=== PATIENT | female | born 1970 ===

== ENCOUNTER → 2022-03-26 | Outpatient (CLI) | payer OTHER ==
[~2022-03-26] MED LIST: AZATHIOPRINE; BUDE32NIS; CETI10; ESOM20; FOLI1; HUMIRA; HYDACE5 PO; IBUP800; METTREX2.5; OXYC40ER; OXYCONTIN; PANT40; PRED20; QUET200; VENL75ER
== END | disposition home or self-care (01) ==
LOC: LAB SHORT 11:04 → LAB 11:04
DX: N39.0 Urinary tract infection, site not specified (principal)
CPT/HCPCS: 87077; 87086; 87186

== ENCOUNTER → 2022-06-06 | Outpatient (CLI) | payer OTHER | LOC: LAB 10:39 → LAB SHORT 10:39 | DX: N39.0 Urinary tract infection, site not specified (principal) | CPT/HCPCS: 87077; 87086; 87186 ==

== ENCOUNTER → 2022-08-23 | Outpatient (CLI) | payer OTHER ==
[2022-08-23 14:35] LABS: BASOPHILS ABSOLUTE AUTO 0.03 K/mm3 (0.00-0.23); BASOPHILS PERCENT AUTO 0 % (0-2); EOSINOPHILS ABSOLUTE AUTO 0.04 K/mm3 (0.00-0.68); EOSINOPHILS PERCENT AUTO 0 % (0-6); Hematocrit 40.1 % (33.0-51.0); Hemoglobin 13.1 g/dL (11.5-16.0); IMMATURE GRAN ABSOLUTE AUTO 0.08 K/mm3 (0.00-0.10); IMMATURE GRAN PERCENT AUTO 1 % (0-1); LYMPHOCYTES ABSOLUTE AUTO 0.81 K/mm3 (0.84-5.20); LYMPHOCYTES PERCENT AUTO 7 % (21-46); MONOCYTES ABSOLUTE AUTO 0.73 K/mm3 (0.16-1.47); MONOCYTES PERCENT AUTO 6 % (4-13); Mean Corpuscular HGB 30.8 pg (26.0-34.0); Mean Corpuscular HGB Conc 32.7 g/dL (31.5-36.5); Mean Corpuscular Volume 94 fL (80-100); Mean Platelet Volume 10.3 fL (9.1-12.4); NEUTROPHILS ABSOLUTE AUTO 10.25 K/mm3 (1.96-9.15); NEUTROPHILS PERCENT AUTO 86 % (41-73); Platelet Count 225 K/mm3 (150-400); RDW Coefficient Variation 14.7 % (11.7-14.2); RDW Standard Deviation 50.9 fL (35.1-46.3); Red Blood Cell Count 4.26 M/mm3 (3.80-5.20); White Blood Cell Count 11.94 K/mm3 (4.00-11.30)
[2022-08-23 15:15] LABS: International Normalized Ratio 2.7; Prothrombin Time Results 26.6 Sec (9.7-11.5)
== END | disposition home or self-care (01) ==
LOC: LAB SHORT 14:31 → LAB 14:31
PROVIDERS: Physician Assistant
DX: S80.11XA Contusion of right lower leg, initial encounter (principal)
CPT/HCPCS: 85025; 85610

== ENCOUNTER → 2022-08-26 | Outpatient (CLI) | payer OTHER ==
[2022-08-26 14:50] LABS: Source, Urine Voided
[2022-08-26 16:59] LABS: Appearance, Urine Cloudy (Clear); Bilirubin, Urine Neg (Neg); Blood, Urine Neg (Neg); Color, Urine Amber (P-Yellow); Glucose Qualitative, Urine Neg (Neg); Ketones, Urine 1+ (Neg); Leukocyte Esterase, Urine Neg (Neg); Nitrite, Urine Neg (Neg); Protein, Urine 2+ (Neg); Urobilinogen, Urine NORM (Normal)
[2022-08-26 17:18] LABS: Amorphous Heavy (0-Heavy)
[2022-08-26 17:19] LABS: Bacteria Rare /hpf; Red Blood Cells, Urine 0-2 /hpf (0-2); Squamous Epithelial Cells Few /hpf (Few); White Blood Cells, Urine 0-2 /hpf (0-5)
== END | disposition home or self-care (01) ==
LOC: LAB SHORT 14:47 → LAB 14:47
PROVIDERS: Physician Assistant
DX: R30.0 Dysuria (principal)
CPT/HCPCS: 81001

== ENCOUNTER → 2023-04-18 | Outpatient (CLI) | payer OTHER | LOC: LAB SHORT 16:09 → LAB 16:09 | DX: N39.0 Urinary tract infection, site not specified (principal) | CPT/HCPCS: 87077; 87086; 87186 ==

== ENCOUNTER 2023-09-14 02:12 | Day surgery (SDC) | payer OTHER ==
[~2023-09-14 02:12] MED LIST changes: +Aspir 8181 MG PO; +BUPROPION HCL200 M2 PO; +DEPO MEDRO; +FLONASE ALLERG9.9 M2; +HYDSUL200 PO; +IRON18 MG PO; +MULTI-VITAMIN1 EAC2; +OXYC5; +OYSTER SHELL 51 EACH PO; +PREG150 PO; +Prednisone10 MG PO; +Vitamin C100 M1; +WARF1
[2023-09-14] MEDS ORDERED: Abatacept/Maltose 1,000 MG in NS 100 ML IV SCH (06:00)
[2023-09-14 10:33] VITALS: BP 121/69
== END 2023-09-14 23:11 | disposition home or self-care (01) ==
LOC: ATC 02:12
DX: M06.9 Rheumatoid arthritis, unspecified (principal); E11.42 Type 2 diabetes mellitus with diabetic polyneuropathy; E66.01 Morbid (severe) obesity due to excess calories; G47.33 Obstructive sleep apnea (adult) (pediatric); K21.9 Gastro-esophageal reflux disease without esophagitis; Z86.711 Personal history of pulmonary embolism; Z79.899 Other long term (current) drug therapy; Z79.52 Long term (current) use of systemic steroids; Z79.01 Long term (current) use of anticoagulants
CPT/HCPCS: 96365; J0129-JA

== ENCOUNTER 2023-10-13 05:08 | Day surgery (SDC) | payer OTHER ==
[2023-10-13 14:55] VITALS: BP 124/77
== END 2023-10-13 15:52 | disposition home or self-care (01) ==
LOC: ATC 05:08
DX: M06.9 Rheumatoid arthritis, unspecified (principal); E11.40 Type 2 diabetes mellitus with diabetic neuropathy, unspecified; E78.5 Hyperlipidemia, unspecified; F32.A Depression, unspecified; G47.33 Obstructive sleep apnea (adult) (pediatric); K21.9 Gastro-esophageal reflux disease without esophagitis; I26.99 Other pulmonary embolism without acute cor pulmonale; M32.9 Systemic lupus erythematosus, unspecified

== ENCOUNTER → 2023-11-28 | Outpatient (CLI) | payer OTHER | END | disposition home or self-care (01) | LOC: LAB SHORT 09:46 → LAB 09:46 | DX: N39.0 Urinary tract infection, site not specified (principal) | CPT/HCPCS: 87086 ==

== ENCOUNTER 2024-01-02 01:44 | Day surgery (SDC) | payer OTHER ==
[~2024-01-02] VITALS: Wt 128.9 kg
[2024-01-02] MEDS ORDERED: DiphenhydrAMINE HCL 25 MG Cap PO PRN (07:10)
[2024-01-02] MEDS ORDERED: Acetaminophen 500 MG Tab PO PRN (07:10)
[2024-01-02] MEDS ORDERED: Abatacept/Maltose 1,000 MG in NS 100 ML IV SCH (10:45)
[2024-01-02 11:43] VITALS: BP 96/58
[2024-01-02 11:47] VITALS: BP 93/57
[2024-01-02 11:52] LABS: International Normalized Ratio 3.21; Prothrombin Time Results 31.5 Sec (9.7-11.5)
== END 2024-01-02 11:58 | disposition home or self-care (01) ==
LOC: ATC 01:44
PROVIDERS: Internal Medicine
DX: M06.09 Rheumatoid arthritis without rheumatoid factor, multiple sites (principal); M32.9 Systemic lupus erythematosus, unspecified; Z79.899 Other long term (current) drug therapy
CPT/HCPCS: 85610; 96365; A9270; J0129-JA

== ENCOUNTER 2024-01-30 02:13 | Day surgery (SDC) | payer OTHER ==
[2024-01-30] MEDS ORDERED: Abatacept/Maltose 1,000 MG in NS 100 ML IV SCH (10:30)
[2024-01-30] MEDS ORDERED: Acetaminophen 500 MG Tab PO SCH (10:30)
[2024-01-30] MEDS ORDERED: DiphenhydrAMINE HCL 25 MG Cap PO SCH (10:30)
[2024-01-30] MEDS ORDERED: DiphenhydrAMINE HCL 25 MG Cap ONE (10:31)
[2024-01-30 10:41] VITALS: BP 115/67
== END 2024-01-30 11:35 | disposition home or self-care (01) ==
LOC: ATC 02:13
DX: M06.09 Rheumatoid arthritis without rheumatoid factor, multiple sites (principal); Z79.899 Other long term (current) drug therapy
CPT/HCPCS: 85610; 96365; A9270; J0129-JA

== ENCOUNTER 2024-03-26 04:49 | Day surgery (SDC) | payer OTHER ==
[2024-03-26] MEDS ORDERED: Acetaminophen 500 MG Tab PO SCH (07:05)
[2024-03-26] MEDS ORDERED: DiphenhydrAMINE HCL 25 MG Cap PO SCH (07:05)
[2024-03-26 10:14] VITALS: BP 128/78
[2024-03-26] MEDS ORDERED: Abatacept/Maltose 1,000 MG in NS 100 ML IV SCH (10:20)
[2024-03-26] MEDS ORDERED: Prednisone20 MG PO (10:43)
[2024-03-26 11:20] LABS: International Normalized Ratio 3.54; Prothrombin Time Results 34.5 Sec (9.7-11.5)
== END 2024-03-26 11:38 | disposition home or self-care (01) ==
LOC: ATC 04:49
PROVIDERS: Internal Medicine
DX: M06.09 Rheumatoid arthritis without rheumatoid factor, multiple sites (principal); M32.9 Systemic lupus erythematosus, unspecified; Z79.01 Long term (current) use of anticoagulants; Z79.899 Other long term (current) drug therapy
CPT/HCPCS: 85610; 96365; A9270; J0129-JA

== ENCOUNTER 2024-05-07 04:06 | Day surgery (SDC) | payer OTHER ==
[~2024-05-07 04:06] MED LIST changes: +Prednisone20 MG PO
[2024-05-07] MEDS ORDERED: Acetaminophen 500 MG Tab PO SCH (06:55)
[2024-05-07] MEDS ORDERED: DiphenhydrAMINE HCL 25 MG Cap PO SCH (06:55)
[2024-05-07 08:28] VITALS: BP 108/55
[2024-05-07] MEDS ORDERED: Abatacept/Maltose 1,000 MG in NS 100 ML IV SCH (08:50)
[2024-05-07 09:32] LABS: International Normalized Ratio 2.1; Prothrombin Time Results 21.3 Sec (9.7-11.5)
== END 2024-05-07 09:46 | disposition home or self-care (01) ==
LOC: ATC 04:06
PROVIDERS: Internal Medicine
DX: M06.09 Rheumatoid arthritis without rheumatoid factor, multiple sites (principal); M17.0 Bilateral primary osteoarthritis of knee; Z79.899 Other long term (current) drug therapy; Z79.01 Long term (current) use of anticoagulants
CPT/HCPCS: 85610; 96365; A9270; J0129-JA

== ENCOUNTER 2024-07-08 07:00 | Day surgery (SDC) | payer OTHER ==
[2024-07-08] MEDS ORDERED: Acetaminophen 500 MG Tab PO SCH (07:20)
[2024-07-08] MEDS ORDERED: DiphenhydrAMINE HCL 25 MG Cap PO SCH (07:20)
[2024-07-08 16:00] VITALS: BP 115/48
[2024-07-08] MEDS ORDERED: Abatacept/Maltose 1,000 MG in NS 100 ML IV SCH (16:15)
[2024-07-08 17:10] LABS: International Normalized Ratio 2.14; Prothrombin Time Results 21.6 Sec (9.7-11.5)
== END 2024-07-08 17:30 | disposition home or self-care (01) ==
LOC: ATC 07:00
PROVIDERS: Internal Medicine
DX: M06.09 Rheumatoid arthritis without rheumatoid factor, multiple sites (principal)
CPT/HCPCS: 85610; 96365; A9270; J0129-JA

== ENCOUNTER 2024-08-06 00:36 | Day surgery (SDC) | payer OTHER ==
[2024-08-06] MEDS ORDERED: DiphenhydrAMINE HCL 25 MG Cap PO SCH (07:00)
[2024-08-06] MEDS ORDERED: Acetaminophen 500 MG Tab PO SCH (07:00)
[2024-08-06 10:19] VITALS: BP 124/66
[2024-08-06] MEDS ORDERED: Abatacept/Maltose 1,000 MG in NS 100 ML IV SCH (10:25)
[2024-08-06 12:26] LABS: International Normalized Ratio 2.79; Prothrombin Time Results 27.7 Sec (9.7-11.5)
== END 2024-08-06 12:00 | disposition home or self-care (01) ==
LOC: ATC 00:36
PROVIDERS: Internal Medicine
DX: M06.09 Rheumatoid arthritis without rheumatoid factor, multiple sites (principal); E27.40 Unspecified adrenocortical insufficiency; G89.4 Chronic pain syndrome; M85.80 Other specified disorders of bone density and structure, unspecified site; M35.00 Sjogren syndrome, unspecified; E66.9 Obesity, unspecified; Z79.52 Long term (current) use of systemic steroids; Z79.899 Other long term (current) drug therapy
CPT/HCPCS: 85610; 96365; A9270; J0129-JA

== ENCOUNTER 2024-09-03 03:46 | Day surgery (SDC) | payer OTHER ==
[2024-09-03] MEDS ORDERED: Acetaminophen 500 MG Tab PO SCH (07:20)
[2024-09-03] MEDS ORDERED: DiphenhydrAMINE HCL 25 MG Cap PO SCH (07:20)
[2024-09-03 14:17] VITALS: BP 122/64
[2024-09-03] MEDS ORDERED: Abatacept/Maltose 1,000 MG in NS 100 ML IV SCH (14:20)
[2024-09-03 14:46] LABS: International Normalized Ratio 2.85; Prothrombin Time Results 28.2 Sec (9.7-11.5)
== END 2024-09-03 15:31 | disposition home or self-care (01) ==
LOC: ATC 03:46
PROVIDERS: Internal Medicine
DX: M06.09 Rheumatoid arthritis without rheumatoid factor, multiple sites (principal); E27.40 Unspecified adrenocortical insufficiency; M85.80 Other specified disorders of bone density and structure, unspecified site; G89.29 Other chronic pain; Z79.899 Other long term (current) drug therapy
CPT/HCPCS: 85610; 96365; A9270; J0129-JA

== ENCOUNTER 2024-10-01 04:05 | Day surgery (SDC) | payer OTHER ==
[2024-10-01] MEDS ORDERED: DiphenhydrAMINE HCL 25 MG Cap PO PRN (06:55)
[2024-10-01] MEDS ORDERED: Acetaminophen 500 MG Tab PO PRN (06:55)
[2024-10-01 10:09] VITALS: BP 135/70
[2024-10-01] MEDS ORDERED: Abatacept/Maltose 1,000 MG in NS 100 ML IV SCH (10:15)
[2024-10-01 11:06] LABS: International Normalized Ratio 3.41; Prothrombin Time Results 33.3 Sec (9.7-11.5)
== END 2024-10-01 11:15 | disposition home or self-care (01) ==
LOC: ATC 04:05
PROVIDERS: Internal Medicine
DX: M06.09 Rheumatoid arthritis without rheumatoid factor, multiple sites (principal); M35.00 Sjogren syndrome, unspecified; Z79.01 Long term (current) use of anticoagulants; Z79.899 Other long term (current) drug therapy
CPT/HCPCS: 85610; 96365; A9270; J0129-JA

== ENCOUNTER 2024-12-19 02:04 | Day surgery (SDC) | payer OTHER ==
[2024-12-19 08:00] VITALS: BP 119/72
[2024-12-19] MEDS ORDERED: Abatacept/Maltose 1,000 MG in NS 100 ML IV SCH (08:20)
== END 2024-12-19 09:25 | disposition home or self-care (01) ==
LOC: ATC 02:04
DX: M06.09 Rheumatoid arthritis without rheumatoid factor, multiple sites (principal); M35.00 Sjogren syndrome, unspecified; E27.40 Unspecified adrenocortical insufficiency; M85.80 Other specified disorders of bone density and structure, unspecified site; G89.4 Chronic pain syndrome; Z86.718 Personal history of other venous thrombosis and embolism; Z79.01 Long term (current) use of anticoagulants; Z79.52 Long term (current) use of systemic steroids; Z79.82 Long term (current) use of aspirin; Z79.899 Other long term (current) drug therapy
CPT/HCPCS: 96365; A9270; J0129-JA

== ENCOUNTER 2025-03-20 03:08 | Day surgery (SDC) | payer OTHER ==
[2025-03-20] MEDS ORDERED: Lidocaine HCl 4% Cream 5 GM ONE (12:14)
== END 2025-03-20 23:00 | disposition home or self-care (01) ==
LOC: WOUND 03:08
DX: S81.802A Unspecified open wound, left lower leg, initial encounter (principal); S81.801A Unspecified open wound, right lower leg, initial encounter; X58.XXXA Exposure to other specified factors, initial encounter; L08.9 Local infection of the skin and subcutaneous tissue, unspecified; M06.9 Rheumatoid arthritis, unspecified; M32.9 Systemic lupus erythematosus, unspecified; E11.9 Type 2 diabetes mellitus without complications; E24.2 Drug-induced Cushing's syndrome; E27.40 Unspecified adrenocortical insufficiency; Z88.8 Allergy status to other drugs, medicaments and biological substances; Z91.041 Radiographic dye allergy status
CPT/HCPCS: A6213; A9270; G0463

== ENCOUNTER 2025-03-26 03:23 | Day surgery (SDC) | payer OTHER ==
[2025-03-26] MEDS ORDERED: Lidocaine HCl 4% Cream 5 GM ONE (13:48)
== END 2025-03-26 23:00 | disposition home or self-care (01) ==
LOC: WOUND 03:23
DX: S81.802D Unspecified open wound, left lower leg, subsequent encounter (principal); L08.9 Local infection of the skin and subcutaneous tissue, unspecified
CPT/HCPCS: A6213; A9270; G0463

== ENCOUNTER 2025-04-02 00:49 | Day surgery (SDC) | payer OTHER ==
[2025-04-02] MEDS ORDERED: Lidocaine HCl 4% Cream 5 GM ONE (13:53)
== END 2025-04-02 23:00 | disposition home or self-care (01) ==
LOC: WOUND 00:49
DX: E11.622 Type 2 diabetes mellitus with other skin ulcer (principal); L97.122 Non-pressure chronic ulcer of left thigh with fat layer exposed; L97.112 Non-pressure chronic ulcer of right thigh with fat layer exposed; L08.9 Local infection of the skin and subcutaneous tissue, unspecified; M06.9 Rheumatoid arthritis, unspecified; M32.9 Systemic lupus erythematosus, unspecified; D80.1 Nonfamilial hypogammaglobulinemia; E24.2 Drug-induced Cushing's syndrome; E27.40 Unspecified adrenocortical insufficiency; Z79.52 Long term (current) use of systemic steroids
CPT/HCPCS: A6213; A9270; G0463

== ENCOUNTER 2025-04-09 01:38 | Day surgery (SDC) | payer OTHER ==
[2025-04-09] MEDS ORDERED: Lidocaine HCl 4% Cream 5 GM ONE (13:41)
== END 2025-04-09 23:00 | disposition home or self-care (01) ==
LOC: WOUND 01:38
DX: L97.822 Non-pressure chronic ulcer of other part of left lower leg with fat layer exposed (principal)
CPT/HCPCS: A6213; A9270

== ENCOUNTER 2025-04-16 09:47 | Day surgery (SDC) | payer OTHER ==
[2025-04-16] MEDS ORDERED: Lidocaine HCl 4% Cream 5 GM ONE (13:42)
== END 2025-04-16 23:00 | disposition home or self-care (01) ==
LOC: WOUND 09:47
DX: E11.622 Type 2 diabetes mellitus with other skin ulcer (principal); L97.125 Non-pressure chronic ulcer of left thigh with muscle involvement without evidence of necrosis; L08.9 Local infection of the skin and subcutaneous tissue, unspecified; M06.9 Rheumatoid arthritis, unspecified; M32.9 Systemic lupus erythematosus, unspecified; E24.2 Drug-induced Cushing's syndrome; E27.40 Unspecified adrenocortical insufficiency; D80.1 Nonfamilial hypogammaglobulinemia
CPT/HCPCS: A6213; A9270

== ENCOUNTER 2025-04-30 01:03 | Day surgery (SDC) | payer OTHER ==
[2025-04-30] MEDS ORDERED: Lidocaine HCl 4% Cream 5 GM ONE ×2 (09:02→09:17)
== END 2025-04-30 23:00 | disposition home or self-care (01) ==
LOC: WOUND 01:03
DX: L97.125 Non-pressure chronic ulcer of left thigh with muscle involvement without evidence of necrosis (principal); L97.112 Non-pressure chronic ulcer of right thigh with fat layer exposed; E83.59 Other disorders of calcium metabolism; I79.8 Other disorders of arteries, arterioles and capillaries in diseases classified elsewhere; I73.9 Peripheral vascular disease, unspecified
CPT/HCPCS: A6213; A9270; G0463

== ENCOUNTER 2025-05-07 00:27 | Day surgery (SDC) | payer OTHER ==
[2025-05-07] MEDS ORDERED: Lidocaine HCl 4% Cream 5 GM ONE (13:36)
== END 2025-05-07 23:33 | disposition home or self-care (01) ==
LOC: WOUND 00:27
DX: L97.122 Non-pressure chronic ulcer of left thigh with fat layer exposed (principal); L97.112 Non-pressure chronic ulcer of right thigh with fat layer exposed; E83.59 Other disorders of calcium metabolism; I79.8 Other disorders of arteries, arterioles and capillaries in diseases classified elsewhere; I73.9 Peripheral vascular disease, unspecified; Z79.01 Long term (current) use of anticoagulants; Z79.51 Long term (current) use of inhaled steroids; Z79.52 Long term (current) use of systemic steroids; Z79.82 Long term (current) use of aspirin; Z79.899 Other long term (current) drug therapy; Z88.8 Allergy status to other drugs, medicaments and biological substances; Z91.018 Allergy to other foods; Z91.041 Radiographic dye allergy status
CPT/HCPCS: A6213; A9270; G0463

== ENCOUNTER 2025-05-14 00:24 | Day surgery (SDC) | payer OTHER ==
[2025-05-14] MEDS ORDERED: Lidocaine HCl 4% Cream 5 GM ONE (13:58)
== END 2025-05-14 23:00 | disposition home or self-care (01) ==
LOC: WOUND 00:24
DX: E11.622 Type 2 diabetes mellitus with other skin ulcer (principal); L97.122 Non-pressure chronic ulcer of left thigh with fat layer exposed; L97.112 Non-pressure chronic ulcer of right thigh with fat layer exposed; E83.59 Other disorders of calcium metabolism; E11.51 Type 2 diabetes mellitus with diabetic peripheral angiopathy without gangrene; E24.2 Drug-induced Cushing's syndrome; M06.9 Rheumatoid arthritis, unspecified; D80.1 Nonfamilial hypogammaglobulinemia; M32.9 Systemic lupus erythematosus, unspecified; Z79.52 Long term (current) use of systemic steroids
CPT/HCPCS: A6213; A9270; G0463

== ENCOUNTER → 2025-05-19 | Outpatient (CLI) | payer OTHER ==
[2025-05-19 16:18] LABS: BASOPHILS ABSOLUTE AUTO 0.09 K/mm3 (0.00-0.23); BASOPHILS PERCENT AUTO 1 % (0-2); EOSINOPHILS ABSOLUTE AUTO 0.04 K/mm3 (0.00-0.68); EOSINOPHILS PERCENT AUTO 0 % (0-6); Hematocrit 41.3 % (33.0-51.0); Hemoglobin 13.2 g/dL (11.5-16.0); IMMATURE GRAN ABSOLUTE AUTO 0.11 K/mm3 (0.00-0.10); IMMATURE GRAN PERCENT AUTO 1 % (0-1); LYMPHOCYTES ABSOLUTE AUTO 1.71 K/mm3 (0.84-5.20); LYMPHOCYTES PERCENT AUTO 18 % (21-46); MONOCYTES ABSOLUTE AUTO 0.68 K/mm3 (0.16-1.47); MONOCYTES PERCENT AUTO 7 % (4-13); Mean Corpuscular HGB Conc 32.0 g/dL (31.5-36.5); Mean Corpuscular Volume 94 fL (80-100); NEUTROPHILS ABSOLUTE AUTO 6.75 K/mm3 (1.96-9.15); NEUTROPHILS PERCENT AUTO 72 % (41-73); NRBC ABSOLUTE 0.00 K/mm3 (0.00-0.02); NRBC Auto 0.0 /100 WBC (0.0-0.2); Platelet Count 324 K/mm3 (150-400); RDW Coefficient Variation 15.3 % (11.7-14.2); RDW Standard Deviation 53.1 fL (35.1-46.3)
[2025-05-19 16:27] LABS: Alanine Aminotransfer (ALT/SGP 48.0 U/L (12-78); Albumin, Blood 3.7 g/dL (3.4-5.0); Albumin/Globulin Ratio 1.1 (0.8-1.8); Anion Gap 13.0 mmol/L (3-11); Aspartate Aminotrans (AST/SGOT 28.0 U/L (12-37); Bilirubin, Total 0.5 mg/dL (0.1-1.0); Blood Urea Nitrogen 13.0 mg/dL (8-24); CO2, Blood 29.0 mmol/L (21-32); Chloride, Blood 106.0 mmol/L (98-108); Creatinine, Blood 0.77 mg/dL (0.40-1.00); Globulin, Blood 3.4 g/dL (2.2-4.0); Glucose, Blood 80.0 mg/dL (70-99); Potassium, Blood 3.9 mmol/L (3.5-5.5); Sodium, Blood 144.0 mmol/L (136-145); Total Protein, Blood 7.1 g/dL (6.4-8.2)
[2025-05-19 16:33] LABS: Calcium, Blood 9.0 mg/dL (8.5-10.1)
[2025-05-19 20:14] LABS: Prothrombin Time Results 36.1 Sec (9.7-11.5)
[2025-05-21 07:40] LABS: ANTI-NUCLEAR AB ANA,IGG ELISA None Detected (None Detected)
== END ==
LOC: LAB SHORT 16:12 → LAB 16:12
PROVIDERS: Internal Medicine; Physician Assistant
DX: B99.9 Unspecified infectious disease (principal); L52 Erythema nodosum; D68.62 Lupus anticoagulant syndrome
CPT/HCPCS: 80053; 85025; 85610; 85651; 86038; 86140; 87070; 87075; 87205

== ENCOUNTER 2025-05-21 01:20 | Day surgery (SDC) | payer OTHER ==
[2025-05-21] MEDS ORDERED: Lidocaine HCl 4% Cream 5 GM ONE (13:32)
== END 2025-05-21 23:58 | disposition home or self-care (01) ==
LOC: WOUND 01:20
DX: L97.122 Non-pressure chronic ulcer of left thigh with fat layer exposed (principal); L97.112 Non-pressure chronic ulcer of right thigh with fat layer exposed; E83.59 Other disorders of calcium metabolism; I79.8 Other disorders of arteries, arterioles and capillaries in diseases classified elsewhere; I73.9 Peripheral vascular disease, unspecified
CPT/HCPCS: A6213; A9270; G0463

== ENCOUNTER 2025-06-04 08:20 | Day surgery (SDC) | payer OTHER ==
[2025-06-04] MEDS ORDERED: Lidocaine HCl 4% Cream 5 GM ONE (13:33)
== END 2025-06-04 23:00 | disposition home or self-care (01) ==
LOC: WOUND 08:20
DX: E11.622 Type 2 diabetes mellitus with other skin ulcer (principal); L97.122 Non-pressure chronic ulcer of left thigh with fat layer exposed; L97.112 Non-pressure chronic ulcer of right thigh with fat layer exposed; E83.59 Other disorders of calcium metabolism; E11.51 Type 2 diabetes mellitus with diabetic peripheral angiopathy without gangrene; M32.9 Systemic lupus erythematosus, unspecified; M06.9 Rheumatoid arthritis, unspecified; D80.1 Nonfamilial hypogammaglobulinemia; E27.40 Unspecified adrenocortical insufficiency; Z79.01 Long term (current) use of anticoagulants; Z79.52 Long term (current) use of systemic steroids; Z79.899 Other long term (current) drug therapy; Z88.0 Allergy status to penicillin; Z88.2 Allergy status to sulfonamides; Z88.8 Allergy status to other drugs, medicaments and biological substances
CPT/HCPCS: 36415; 85610; A6213; A9270; G0463